=== PATIENT | female | born 1970 | race Caucasian/White ===

== ENCOUNTER 2016-09-25 12:57 | Emergency (ER) | payer MEDICAID ==
[2016-09-25 13:04] VITALS: BP 108/50
--- NOTE | 2016-09-25 13:32 | ERNOTE ---
Medical Problem HPI - General Chief Complaint: General Assessment Time Seen by Provider: 09/25/16 13:01 Source: patient Exam Limitations: no limitations - Immun/Allergies/Home Medications Immunizations: IMMUNIZATION HX Immunizations Up to Date Yes History of Influenza Vaccine Yes Hx Pneumococcal Vaccination No Allergies/Adverse Reactions: Allergies fentanyl Adverse Reaction (Intermediate, Verified 09/25/16 13:07) Other morphine Adverse Reaction (Intermediate, Verified 09/25/16 13:11) Other Patient reports chest pain NSAIDS (Non-Steroidal Anti-Inflamma Adverse Reaction (Intermediate, Verified 13:07) Vomiting Home Medications: HOME MEDICATIONS Gabapentin 600 mg PO TID 01/24/15 [Last Taken 02/12/15] Promethazine HCl [Phenergan] 25 mg PO QID PRN 01/24/15 [Last Taken 02/12/15] Pantoprazole Sodium 40 mg PO DAILY 03/28/15 [Last Taken Unknown] Sucralfate [Carafate] 1 gm PO QID 09/19/15 [Last Taken Unknown] traZODone HCL [Desyrel] 150 mg PO HS 09/19/15 [Last Taken Unknown] Misoprostol [Cytotec] 200 mcg PO QID 09/25/16 [Last Taken Unknown] Ondansetron [Zofran Odt] 4 mg PO BID 09/25/16 [Last Taken Unknown] Sucralfate [Carafate] 1 gm PO QID #120 tab 09/25/16 [Last Taken Unknown] levETIRAcetam [Keppra] 500 mg PO BID 09/25/16 [Last Taken Unknown] - History of Present History Narrative: Patient state that she had a recurrence of her abdominal pain which the past has been linked to peptic ulcer disease. She states that when the pain gets extraordinarily bad in the epigastric region that she is prone to fainting and that's what happened to her today. Patient states that this happened multiple times in the past and she is certain that this is exactly what happened today. Timing: intermittent Severity: moderate Review of Systems - Review of Systems Constitutional: Present: See HPI EYE: Present: no symptoms reported ENT: Present: no symptoms reported Respiratory: Present: no symptoms reported Cardiology: Present: no symptoms reported Gastrointestinal/Abdominal: Present: abdominal pain Genitourinary: Present: no symptoms reported Musculoskeletal: Present: no symptoms reported Skin: Present: no symptoms reported Neurological: Present: See HPI Endocrine: Present: no symptoms reported Hematologic/Lymphatic: Present: no symptoms reported Psych: Present: no symptoms reported - Patient's Past Medical History Patient History - Medical: Anxiety, Chronic Pain, Depression, GERD, Seizures, Other - PUD, Pancreatitis, Neurally mediated syncope Patient History - Cardiac/Respiratory: No pertinent hx Patient History - Cancer: No Hx of Cancer Patient History - Surgical Procedures: Appendectomy, Cholecystectomy, Gastric Bypass, Hysterectomy, Tubal Ligation Patient History - Other: None LMP (females 10-50): Menopausal - Family History Mother Family History - Medical: No pertinent hx Family History - Cardiac/Respiratory: Hypertension Father Family History - Medical: , No pertinent hx Family History - Cardiac/Respiratory: No pertinent hx - Social History Living Situations: home Abuse History: No History of abuse Psych History: Hx of Anxiety, Hx of Depression Smoking Status: Current every day smoker Alcohol Use: none Drug Use: none - Immunizations Immunizations Up to Date: Yes Hx Pneumococcal Vaccination: No History of Influenza Vaccine: Yes Physical Exam - Physical Exam General Appearance: Present: wd/wn, alert, moderate distress Eye Exam: Normal inspection: bilateral, PERRL: bilateral Ears, Nose, Throat: Present: normal ENT inspection, H, normal pharynx Neck: Present: normal inspection, nontender Respiratory: Present: no respiratory distress, normal breath sounds, no accessory muscle use, chest nontender, lungs clear Cardiovascular/Chest: Present: regular rate, rhythm, no murmur, normal peripheral pulses Gastrointestinal/Abdominal: Present: normal bowel sounds, nondistended, soft, no organomegaly, tenderness Rectal Exam: Present: deferred Back Exam: Present: normal inspection, normal range of motion Extremity Exam: Present: normal inspection, non-tender, no edema, normal range of motion Neurological Exam: Present: alert, oriented, normal mood/affect Skin Exam: Present: normal color, warm/dry Lymphatic Exam: Present: no adenopathy ED Progress - Results and Orders Patient's Lab Results:: I have reviewed the patient's lab results. - Vital Signs Patient's Vital Signs:: I have reviewed the patient's vital signs. Vital Signs: Vital Signs 09/25/16 09/25/16 12:59 13:11 Temperature 36.7 C Pulse Rate 81 77 Respiratory 16 13 Rate Blood Pressure 108/50 108/50 O2 Sat by Pulse 100 99 Oximetry - EKG EKG: NSR - X-Ray X-Ray #1 X-Ray: chest Interpretation: Reviewed by me - Progress/Reassessment Chief Complaint: General Assessment Progress:: Improved Plan - Plan Plan: She states she always has the symptoms as noted above I suspect that we may very well have a recurrence of her stomach ulcer. She is currently on Protonix and we will add Carafate to this and she has agreed to call her physician in [place] for a repeat EGD. Departure - Departure Clinical Impression: Syncope, non cardiac, Peptic ulcer disease Disposition: Home self-care Condition: Good Instructions: Syncope, [id number] Prescriptions: Sucralfate [Carafate] 1 gm PO QID #120 tab
[2016-09-25] MEDS ORDERED: FAMOTIDINE 10 MG/ML VIAL IV ONE ×2 (13:33→13:37)
[2016-09-25] MEDS ORDERED: PROCHLORPERAZINE EDISYLATE 5 MG/ML VIAL IV ONE (13:35)
[2016-09-25] MEDS ORDERED: diphenhydrAMINE HCL 50 MG/ML VIAL IV ONE (13:35)
[2016-09-25] MEDS ORDERED: diphenhydrAMINE HCL 50 MG/ML VIAL ONE (13:36)
[2016-09-25] MEDS ORDERED: NORMAL SALINE 1,000 ML in NORMAL SALINE 1,000 ML IV ONE (13:37)
[2016-09-25] MEDS ORDERED: PROCHLORPERAZINE EDISYLATE 5 MG/ML VIAL ONE (13:37)
[2016-09-25 14:00] LABS: Hemoglobin 10.1 gm/dL (12.5-16.0); Mean Cell Volume 86.8 fl (78-100); Mean Corpuscular Hemoglobin 26.6 pg (27-31); Mean Corpuscular Hgb Conc 30.6 g/dl (32-36); Mean Platelet Volume 9.5 fl (6.0-9.5); Neutrophil # 3.6 K/mm3 (1.3-6.0); Neutrophil % 55.3 % (42-75.0); Platelet Count 245 K/mm3 (150-450); Red Cell Distribution Width 16.1 % (11.5-14.0); White Blood Count 6.4 K/mm3 (4.0-10.5)
--- OUTSIDE RECORDS SUMMARY | 2016-09-25 14:00 | XMS REPORT | Continuity of Care Document ---
:1970 Author Organization [facility] ([facility]) Address [address] [place] [address] Phone [phone] Care Team Providers Name Role Phone Ki Lore Moyer Primary Care Provider [phone] Source Comments This disclosure is being made pursuant to the Care Everywhere program, applicable federal and state laws, and may not contain all informaitonavailable regarding this patient.[facility] ([facility]) Active Allergies and Adverse Reactions Allergen Noted Date Severity Reactions Comments Diphenhydramine 04/19/2012 OTHER "it makes me antsy" Fentanyl 07/30/2015 Chest pain Morphine 03/15/2015 OTHER Irritable Nsaids (Non-Steroidal 11/07/2013 OTHER Anti-Inflammatory Drug) Other Agent Blisters Metals burn and irritate Paper tape blisters skin Current Medications Prescription Sig. Disp. Refills Start Date End Date Status traZODone 100 mg Take 100 mg by Active tablet mouth at bedtime as needed for Sleep buPROPion Take 300 mg by Active (WELLBUTRIN XL) 300 mouth Every mg extended release morning tablet 24 hour promethazine 25 mg Take 25 mg by Active tablet mouth every 8 hours as needed acetaminophen 500 mg Take 500-1,000 Active tablet mg by mouth every 6 hours as needed CALCIUM Take 1 tablet by Active CARBONATE/VITAMIN D2 mouth 2 times (CALCIUM + VITAMIN D daily PO) vitamin B complex Take 1 tablet by Active tablet mouth daily cyanocobalamin Take 1,000 mcg Active (VITAMIN B-12) 1,000 by mouth daily mcg tablet albuterol 90 Use 2 Puffs by Active mcg/Actuation inhalation every inhaler 4 hours as needed ondansetron 4 mg Take 1 tablet (4 10 tablet 0 07/04/2015 Active disintegrating mg total) by tablet mouth every 6 hours as needed gabapentin 300 mg Take 600 mg by Active capsule mouth 3 times daily. misoPROStol 200 mcg Take 1 tablet 120 tablet 3 08/01/2015 Active tablet (200 mcg total) by mouth 4 times daily. pantoprazole 40 mg Take 1 tablet 30 tablet 3 08/01/2015 Active EC tablet (40 mg total) by mouth daily. sucralfate 1000 mg Take 1 tablet 90 tablet 11 08/01/2015 Active tablet (1,000 mg total) by mouth before meals and at bedtime. ondansetron [address] 1 tablet 12 tablet 0 08/23/2015 Active disintegrating (4 mg total) in tablet mouth every 6 hours as needed. promethazine 25 mg Insert 1 12 Suppository 0 08/26/2015 Active suppository Suppository (25 mg total) rectally every 8 hours as needed. ondansetron 4 mg Take 1 tablet (4 12 tablet 0 08/26/2015 Active disintegrating mg total) by tablet mouth every 6 hours as needed. HYDROmorphone 2 mg Take 1 tablet (2 10 tablet 0 12/06/2015 Active tablet mg total) by mouth every 4 hours as needed for pain. Active Problems Problem Noted Date Pancreatitis, chronic 04/17/2015 Abdominal pain, epigastric 04/08/2015 Epigastric pain 04/08/2015 Ulcer jejunum 03/16/2015 B12 deficiency 12/25/2014 Small intestinal bacterial overgrowth 12/24/2014 Overview: Possible diagnosis. Undergoing empiric treatment. 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 Drug withdrawal syndrome with complication 12/22/2014 Anastomotic ulcer 12/20/2014 Tobacco dependence 12/20/2014 Diarrhea 10/05/2014 Iron deficiency anemia 11/08/2013 Abdominal pain 01/21/2012 Hypovitaminosis D 03/08/2011 Status post bariatric surgery 05/17/2009 Resolved Problems Problem Noted Date Resolved Date Sepsis(995.91) 05/04/2015 05/05/2015 Nausea 04/17/2015 04/19/2015 Upper GI bleed 03/15/2015 03/18/2015 Coffee ground emesis 12/20/2014 12/26/2014 Nausea alone 10/05/2014 12/20/2014 Abdominal pain, epigastric 10/20/2012 04/19/2015 Screening for cholesterol level 08/29/2012 12/20/2014 Headache(784.0) 08/29/2012 12/20/2014 Screening for breast cancer 08/29/2012 12/20/2014 Morbid obesity 02/12/2008 11/28/2014 Immunizations Name Dates Previously Given Next Due Influenza, unspecified 03/31/2014 Pneumococcal Polysaccharide, PPSV23 (Pneumovax 23) 01/23/2012 Social History Tobacco Use Types Packs/Day Years Used Date Current Every Day Smoker Cigarettes 1 Started: 11/11/1978 Smokeless Tobacco: Never Used Tobacco Cessation:Ready to Quit: No; Counseling Given: Yes Comments: Alcohol Use Drinks/Week oz/Week Comments No Last Filed Vital Signs Vital Sign Reading Time Taken Blood Pressure 111/68 04/06/2016 8:32 AM CDT Pulse 104 04/06/2016 8:32 AM CDT Temperature 37 C (98.6 F) 04/06/2016 8:32 AM CDT Respiratory Rate 14 04/06/2016 8:32 AM CDT Height 1.689 m (5' 6.5") 10/07/2015 10:43 AM CDT Weight 72.576 kg (160 lb) 10/07/2015 10:43 AM CDT Body Mass Index 25.44 10/07/2015 10:43 AM CDT Oxygen Saturation 99% 04/06/2016 8:32 AM CDT Plan of Care Health Maintenance Due Date Last Done Comments Hepatitis B Vaccine (1 of 3 - Primary 1970 Series) Tdap Vaccine 12/20/1979 MMR Vaccine 1986 Cervical Cancer Screening 1998 Mammogram 2008 Influenza Vaccine: Seasonal (#1) 01/30/2016 03/31/2014 Lipid Disorder Screening 08/29/2017 08/29/2012, 03/01/2011, 01/22/2008 Td Vaccine 08/29/2020 08/29/2010 Pneumococcal Vaccine Completed 01/23/2012 Results from Last 3 Months Not on file
[2016-09-25 14:25] LABS: Albumin * 3.1 gm/dl (3.4-5.0); Anion Gap 10.6 mmol/L (6.8-13.8); BUN/Creatinine Ratio 13.3 (9.0-21.6); Bilirubin, Total 0.2 mg/dL (0.0-1.1); Ca. Corrected For Albumin 8.7 mg/dL (8.4-10.2); Calcium * 8.3 mg/dL (7.9-10.9); Carbon Dioxide 29.1 mmol/L (24-32.6); Potassium 4.7 mmol/L (3.4-4.6); Total Protein 6.5 gm/dL (6.2-8.2)
--- NOTE | 2016-09-25 15:40 | OR ---
Anesthesia Procedure Note - Anesthesia Procedure Note Date of Service: 09/25/16 Narrative: Vital Signs - Last Taken Temp 36.7 C 09/25/16 12:59 Pulse 77 09/25/16 13:11 Resp 13 09/25/16 13:11 BP 108/50 09/25/16 13:11 Pulse Ox 99 09/25/16 13:11 O2 Oxygen Delivery Method Room Air 09/25/16 15:39 ANESTHESIA PROCEDURE NOTE Date of Procedure: 09/25/2016. Time of procedure: 1514. Performed by: Huy Grubbs CRNA [employer] Equipment Operator: None. Preprocedure diagnosis: Syncopal episode, difficult IV access. Post procedure diagnosis: Same. Procedure: Peripheral vein IV insertion. Indications: This 45-year-old female who is in the emergency room. Numerous attempts at IV insertion were attempted by emergency room staff without success. Findings: See below. Details of the procedure: Skin over the intended target site was cleansed with alcohol. A 22-gauge IV catheter was inserted into a left hand vein. A sterile dressing was applied over the insertion site. The line was then flushed with sterile saline solution. EBL: Minimal. Fluids: N/A. Specimen: N/A. Post procedure condition: The patient tolerated the procedure well. No complications were noted. Thank you for this consultation. Huy Grubbs CRNA
== END 2016-09-25 16:40 | disposition home or self-care (01) ==
LOC: ER 12:57
DX: R55 Syncope and collapse (principal); K27.9 Peptic ulcer, site unspecified, unspecified as acute or chronic, without hemorrhage or perforation; Z72.0 Tobacco use; K21.9 Gastro-esophageal reflux disease without esophagitis; R56.9 Unspecified convulsions; F41.8 Other specified anxiety disorders; G89.29 Other chronic pain

== ENCOUNTER 2017-05-16 10:35 | Emergency (ER) | payer MEDICAID ==
[2017-05-16] MEDS ORDERED: ONDANSETRON HCL/PF 2 MG/ML VIAL IV ONE (10:55)
[2017-05-16] MEDS ORDERED: DICYCLOMINE HCL 10 MG/ML AMPUL IM ONE ×2 (10:56→11:21)
[2017-05-16 11:08] LABS: Hematocrit 43.4 % (37.0-47.0); Hemoglobin 14.9 gm/dL (12.5-16.0); Mean Cell Volume 96.4 fl (78-100); Mean Corpuscular Hemoglobin 33.1 pg (27-31); Mean Corpuscular Hgb Conc 34.3 g/dl (32-36); Mean Platelet Volume 9.6 fl (6.0-9.5); Neutrophil # 5.8 K/mm3 (1.3-6.0); Neutrophil % 74.3 % (42-75.0); Platelet Count 230 K/mm3 (150-450); Red Cell Distribution Width 12.3 % (11.5-14.0); White Blood Count 7.8 K/mm3 (4.0-10.5)
--- NOTE | 2017-05-16 11:11 | ERNOTE ---
Abdominal HPI - Narrative Date of Service: 05/16/17 - General Chief Complaint: Abdominal Pain Time Seen by Provider: 05/16/17 10:51 Source: patient Exam Limitations: no limitations - Immun/Allergies/Home Medications Immunizatons: IMMUNIZATION HX Immunizations Up to Date Yes History of Influenza Vaccine No Hx Pneumococcal Vaccination No Allergies/Adverse Reactions: Allergies fentanyl Adverse Reaction (Intermediate, Verified 05/16/17 10:57) Other morphine Adverse Reaction (Intermediate, Verified 05/16/17 10:57) Other Patient reports chest pain NSAIDS (Non-Steroidal Anti-Inflamma Adverse Reaction (Intermediate, Verified 10:57) Vomiting Home Medications: HOME MEDICATIONS Gabapentin 600 mg PO TID 01/24/15 [Last Taken 02/12/15] Promethazine HCl [Phenergan] 25 mg PO QID PRN 01/24/15 [Last Taken 02/12/15] Pantoprazole Sodium 40 mg PO DAILY 03/28/15 [Last Taken Unknown] traZODone HCL [Desyrel] 150 mg PO HS 09/19/15 [Last Taken Unknown] Misoprostol [Cytotec] 200 mcg PO QID 09/25/16 [Last Taken Unknown] Ondansetron [Zofran Odt] 4 mg PO BID 09/25/16 [Last Taken Unknown] Sucralfate [Carafate] 1 gm PO QID #120 tab 09/25/16 [Last Taken Unknown] levETIRAcetam [Keppra] 750 mg PO BID 09/25/16 [Last Taken Unknown] Ondansetron [Zofran Odt] 4 mg PO Q6H PRN #20 tab 05/16/17 [Last Taken Unknown] - History of Present Illness Narrative: Pt. comes in with c/o BUQ pain and B flank pain for 6 hours. Pt.also states that the symptoms are associated with nausea, diarrhea, and chills. Pt. denies any fever, CP, SOB, constipation, recent illness or injury. Pt. has a hx of chronic pancreatitis which she is on medications for and took this morning along with Tylenol which she denies any alleviation for. Pt. Pt. states that movement exacerbates the pain. Review of Systems - Review of Systems Constitutional: Present: no symptoms reported. Absent: recent illness, fever, chills, weakness, fatigue, malaise EYE: Present: no symptoms reported ENT: Present: no symptoms reported Respiratory: Present: no symptoms reported. Absent: shortness of breath, cough , wheezing Cardiology: Present: no symptoms reported. Absent: chest pain, palpitations, edema Gastrointestinal/Abdominal: Present: nausea, vomiting, diarrhea, abdominal pain , eating less, drinking less. Absent: constipation Genitourinary: Present: no symptoms reported Musculoskeletal: Present: no symptoms reported. Absent: back pain, joint pain Skin: Present: no symptoms reported. Absent: rash, lesions, lumps, change in hair/nails Neurological: Present: no symptoms reported. Absent: headache, dizziness/light- headedness, numbness, tingling All Other Systems: All systems neg except as marked - Patient's Past Medical History Patient History - Medical: Anxiety, Chronic Pain, Depression, GERD, Seizures Patient History - Cardiac/Respiratory: No pertinent hx Patient History - Cancer: No Hx of Cancer Patient History - Surgical Procedures: Appendectomy, Cholecystectomy, Gastric Bypass, Hysterectomy, Tubal Ligation Patient History - Other: None - Family History Mother Family History - Medical: No pertinent hx Family History - Cardiac/Respiratory: Hypertension Father Family History - Medical: , No pertinent hx Family History - Cardiac/Respiratory: No pertinent hx - Social History Living Situations: home Abuse History: No History of abuse Psych History: Hx of Anxiety, Hx of Depression Smoking Status: Current every day smoker Alcohol Use: none Drug Use: none - Immunizations Immunizations Up to Date: Yes Hx Pneumococcal Vaccination: No History of Influenza Vaccine: No Physical Exam - Physical Exam General Appearance: Present: wd/wn, alert, no apparent distress Head Exam: Present: normal inspection, no evidence of injury Eye Exam: Normal inspection: bilateral, PERRL: bilateral, EOMI: bilateral Ears, Nose, Throat: Present: normal ENT inspection, normal pharynx Neck: Present: normal inspection, nontender. Absent: lymphadenopathy (R), lymphadenopathy (L) Respiratory: Present: no respiratory distress, normal breath sounds, no accessory muscle use, chest nontender, lungs clear Cardiovascular/Chest: Present: regular rate, rhythm, no murmur, normal peripheral pulses Gastrointestinal/Abdominal: Present: normal bowel sounds, nontender, nondistended, soft, no organomegaly Back Exam: Present: normal range of motion, no vertebral tenderness, CVA tenderness (R), CVA tenderness (L) Extremity Exam: Present: normal inspection, non-tender, normal range of motion, no edema Neurological Exam: Present: alert, oriented, normal mood/affect, no motor/ sensory deficits, community coordinator II-XII nml as tested, normal cerebellar test Skin Exam: Present: normal color, warm/dry. Absent: pallor, skin rash ED Progress - Results and Orders Patient's Lab Results:: I have reviewed the patient's lab results. - Vital Signs Patient's Vital Signs:: I have reviewed the patient's vital signs. Vital Signs: Vital Signs 05/16/17 10:52 Temperature 37.0 C Pulse Rate 81 Respiratory 16 Rate Blood Pressure 106/66 O2 Sat by Pulse 100 Oximetry - CT/Ultrasound CT/Ultrasound Narrative: UNENHANCED CT SCAN OF THE ABDOMEN AND PELVIS USING A KIDNEY STONE PROTOCOL. COMPARISON: NONE Technique: Multiple axial images were obtained from above the kidneys down through the pelvis without the use of IV or oral contrast. Coronal reconstructions were obtained. The lack of oral and IV contrast limits the evaluation of the solid organs, bowel, and vascular system. Individualized dose optimization technique was used for the performed procedure including automated exposure control, adjustment of the mA and/or kV according to patient size and/or the iterative reconstruction technique. Findings: The visualized costophrenic angles / lung bases are clear. The liver and spleen are homogeneous in appearance for an unenhanced study. The right lobe the liver is prominent measuring 20 cm in craniocaudal dimension, which is essentially unchanged from the prior study. 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 The patient is status post cholecystectomy. The common bile duct measures 16 mm in diameter, which has progressed when compared to the prior study. This may reflect postcholecystectomy dilatation, but other etiologies cannot be totally excluded. The adrenal glands are within normal limits. The pancreas is suboptimally evaluated without IV or oral contrast, but is grossly normal in appearance. A small pancreatic lesion cannot excluded. The abdominal aorta is of normal caliber. I do not see evidence for retroperitoneal adenopathy on this study. There is been a previous gastric bypass.. The small bowel is of normal caliber. The appendix is not identified. The colon is suboptimally evaluated, but I'm not convinced of a definable colon lesion. The right and left renal parenchyma is normal in appearance for an unenhanced study. A small mass, small cysts, and pyelonephritis cannot be totally excluded on this unenhanced study. Right kidney: There is a 1.5 mm nonobstructing calculus in the midpole the right kidney. The right pelvicalyceal system and right ureter is of normal caliber. The ureter is difficult to follow due to the lack of dilatation, but I'm not convinced of definable calculus. Left kidney: There is a 1 mm nonobstructing calculus in the upper pole the left kidney. The left pelvicalyceal system and left ureter are of normal caliber. The ureter is difficult to follow due to the lack of dilatation I'm not convinced of a definable calculus along the path of the ureter. CT scan of pelvis: The urinary bladder is normal in appearance on this limited study. The patient' s status post hysterectomy. The the right and left ovaries are not clearly defined. I do not see evidence for free fluid, mass, or adenopathy in the pelvis. IMPRESSION: 1. LIMITED UNENHANCED STUDY. 2. SINGLE SMALL NONOBSTRUCTING RENAL CALCULI IN BOTH KIDNEYS WITHOUT EVIDENCE FOR HYDRONEPHROSIS OR DEFINABLE CALCULUS ALONG THE PATH OF URETERS. 3. 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 4. STATUS POST CHOLECYSTECTOMY. 5. DILATED COMMON BILE DUCT; THIS MAY BE RELATED TO POSTCHOLECYSTECTOMY DILATATION, BUT OTHER ETIOLOGIES CANNOT BE TOTALLY EXCLUDED AND CORRELATION REQUIRED. 6. STATUS POST HYSTERECTOMY. Electronically signed by Varun Ospina M.D.. - Progress/Reassessment Chief Complaint: Abdominal Pain Progress:: Improved Departure Clinical Impression: Acute gastroenteritis - Departure Disposition: Home self-care Condition: Good Instructions: Viral Gastroenteritis, Adult, [id number] Additional Instructions: May take warm showers or baths for discomfort and Tylenl. Please try to drink fluids as possible and take zofran for nausea. Follow up with primary provider in 2-3 days. Prescriptions: Ondansetron [Zofran Odt] 4 mg PO Q6H PRN #20 tab PRN Reason: Nausea
[2017-05-16 11:16] LABS: Urine Bilirubin Negative (NEGATIVE); Urine Blood 25 /ul (NEGATIVE); Urine Ketone Negative (NEGATIVE); Urine Nitrite Negative (NEGATIVE); Urine Protein Negative (NEGATIVE); Urine Urobilinogen Normal (NORMAL); Urine pH 6.5 pH (5.0-7.0)
[2017-05-16] MEDS ORDERED: ONDANSETRON HCL/PF 2 MG/ML VIAL ONE (11:21)
[2017-05-16 11:22] LABS: Albumin * 3.5 gm/dl (3.4-5.0); Anion Gap 12.1 mmol/L (6.8-13.8); BUN/Creatinine Ratio 9.6 (9.0-21.6); Bilirubin, Total 0.4 mg/dL (0.0-1.1); Ca. Corrected For Albumin 8.8 mg/dL (8.4-10.2); Calcium * 8.7 mg/dL (7.9-10.9); Carbon Dioxide 25.5 mmol/L (24-32.6); Potassium 4.6 mmol/L (3.4-4.6)
[2017-05-16 11:25] LABS: Urine Appearance Clear; Urine Bacteria None Seen; Urine Color Yellow; Urine RBC 0-5 /hpf (0-5); Urine WBC None Seen /hpf (0-5)
[2017-05-16] MEDS ORDERED: HYDROmorphone HCL 1 MG/ML DISP.SYRIN IV ONE (12:16)
[2017-05-16] MEDS ORDERED: HYDROmorphone HCL 1 MG/ML DISP.SYRIN ONE (12:23)
[2017-05-16 14:33] VITALS: BP 90/39
== END 2017-05-16 14:34 | disposition home or self-care (01) ==
LOC: ER 10:35
DX: K52.9 Noninfective gastroenteritis and colitis, unspecified (principal); F17.200 Nicotine dependence, unspecified, uncomplicated; F41.9 Anxiety disorder, unspecified; K21.9 Gastro-esophageal reflux disease without esophagitis; R56.9 Unspecified convulsions; F32.9 Major depressive disorder, single episode, unspecified
CPT/HCPCS: 36415; 74020; 74176; 80053; 81001; 82150; 83690; 85025; 96372; 96374; 96375; 99284; J2405

== ENCOUNTER 2018-08-26 10:21 | Observation (INO) ==
[2018-08-26] MEDS ORDERED: ONDANSETRON HCL/PF 2 MG/ML VIAL IV ONE (10:33)
[2018-08-26] MEDS ORDERED: HYDROmorphone HCL 1 MG/ML DISP.SYRIN IV ONE ×3 (10:40→14:11)
--- NOTE | 2018-08-26 10:40 | ERNOTE ---
Abdominal HPI - Narrative Date of Service: 08/26/18 - General Chief Complaint: Abdominal Pain Time Seen by Provider: 08/26/18 10:25 Source: patient Exam Limitations: no limitations - Immun/Allergies/Home Medications Immunizatons: IMMUNIZATION HX Immunizations Up to Date Yes History of Influenza Vaccine Yes Hx Pneumococcal Vaccination Yes Allergies/Adverse Reactions: Allergies fentanyl Adverse Reaction (Intermediate, Verified 08/26/18 10:31) Chest Pain chest tightness morphine Adverse Reaction (Intermediate, Verified 08/26/18 10:31) Chest Pain Patient reports chest pain NSAIDS (Non-Steroidal Anti-Inflamma Adverse Reaction (Intermediate, Verified 08/26/18 10:31) Vomiting Home Medications: HOME MEDICATIONS Dexlansoprazole [Dexilant] 60 mg PO DAILY 03/08/18 [Last Taken Unknown] Ondansetron [Zofran Odt] 4 mg PO QID PRN 03/08/18 [Last Taken Unknown] Venlafaxine HCl [Effexor] 75 mg PO DAILY 03/08/18 [Last Taken Unknown] Lipase/Protease/Amylase [Niraj Lozano 4,200 Unit Cap] 1 ea PO AC 08/25/18 [Last Taken Unknown] HYDROcodone/ACETAMINOPHEN [[place] 5-325] 1 tab PO Q4H PRN 08/26/18 [Last Taken Unknown] - Pain Score Pain Score #1 Pain Score: 10 Abdominal Pain Onset Location: RLQ Pain Radiation: no radiation - History of Present Illness Narrative: The patient is a 47 year old female who presents for RLQ abdominal pain which has been present for 4 days. There are associated symptoms of nausea, vomiting and diarrhea. The patient reports RLQ and right mid abdominal pain, 10/10. There are no alleviating factors. There are aggravating factors of activity and palpation. Previous treatments have included: hydrocodone without improvement. The past medical history includes: pancreatitis, PUD and chronic pain. The social history is positive for current tobacco use. The patient has had no ill contacts. Patient was evaluated yesterday with CT results, consulted. Patient has colonoscopy scheduled 08/27/18 and yesterday felt able to go home and manage symptoms. Review of Systems - Review of Systems Constitutional: Present: fatigue. Absent: fever EYE: Present: no symptoms reported ENT: Present: no symptoms reported. Absent: ear pain, nasal drainage, sore throat Respiratory: Present: no symptoms reported. Absent: shortness of breath, cough Cardiology: Present: no symptoms reported. Absent: chest pain Gastrointestinal/Abdominal: Present: nausea, vomiting, diarrhea, abdominal pain, eating less, drinking less Genitourinary: Present: no symptoms reported. Absent: dysuria, decreased urinary output Musculoskeletal: Present: no symptoms reported Skin: Present: no symptoms reported Neurological: Present: no symptoms reported Endocrine: Present: no symptoms reported Hematologic/Lymphatic: Present: no symptoms reported Psych: Present: no symptoms reported All Other Systems: All systems neg except as marked Medical History (Last Reviewed 08/26/18 @ 11:12 by KIM Martines) Chronic pain Pancreatitis Peptic ulcer disease Surgical History: Surgical History (Last Reviewed 08/26/18 @ 11:12 by KIM Martines) Hx of appendectomy Hx of cholecystectomy Hx of gastric bypass Hx of hysterectomy Social History: Preferred Language Uzbek Smoking Status Current every day smoker Abuse History No History of abuse Psych History Hx of Anxiety,Hx of Depression Alcohol Use none Drug Use none No Social History Section defined Physical Exam - Physical Exam General Appearance: Present: wd/wn, alert, moderate distress Head Exam: Present: normal inspection Eye Exam: Normal inspection: bilateral Neck: Present: normal inspection Respiratory: Present: no respiratory distress, normal breath sounds, no accessory muscle use, lungs clear Cardiovascular/Chest: Present: regular rate, rhythm, no murmur Gastrointestinal/Abdominal: Present: normal bowel sounds, nondistended, soft, no organomegaly, tenderness - RLQ right mid abdomen, guarding, rebound, Psoas sign. Absent: mass Neurological Exam: Present: alert, oriented, normal mood/affect Skin Exam: Present: normal color, warm/dry Progress - Date and Time Seen: Date and Time: 08/26/18 11:10 Discussed case with , will repeat lab testing. 08/26/18 12:02 Discussed repeat results with , will admit to medicine and consult during stay. Discussed case with , will admit observation for intractable abdominal pain with nausea and vomiting. Will still plan for scope tomorrow as previously scheduled. - Results and Orders Patient's Lab Results:: I have reviewed the patient's lab results. - Vital Signs Patient's Vital Signs:: I have reviewed the patient's vital signs. Vital Signs: Vital Signs 08/26/18 10:27 Temperature 37 C Pulse Rate 76 Respiratory Rate 14 Blood Pressure 119/58 O2 Sat by Pulse Oximetry 99 - Progress/Reassessment Chief Complaint: Abdominal Pain Progress:: Improved Departure Clinical Impression: Intractable abdominal pain, Nausea and vomiting in adult patient, Abnormal CT of the abdomen - Departure Disposition: Still a patient Condition: Fair
[2018-08-26 10:58] LABS: Hematocrit 41.9 % (37.0-47.0); Hemoglobin 14.2 gm/dL (12.5-16.0); Mean Cell Volume 94.6 fl (78-100); Mean Corpuscular Hemoglobin 32.1 pg (27-31); Mean Corpuscular Hgb Conc 33.9 g/dl (32-36); Mean Platelet Volume 9.2 fl (8-12.5); Neutrophil % 73.1 % (42-75.0); Platelet Count 219 K/mm3 (150-450); Red Blood Count 4.43 M/mm3 (4.2-5.4); Red Cell Distribution Width 12.5 % (11.5-14.0); White Blood Count 6.8 K/mm3 (4.0-10.5)
[2018-08-26 11:13] LABS: Albumin * 3.6 gm/dl (3.4-5.0); Anion Gap 15.1 mmol/L (6.8-13.8); BUN/Creatinine Ratio 12.1 (9.0-21.6); Bilirubin, Total 0.5 mg/dL (0.0-1.1); Ca. Corrected For Albumin 9.3 mg/dL (8.4-10.2); Calcium * 9.3 mg/dL (7.9-10.9); Carbon Dioxide 25.8 mmol/L (24-32.6); Potassium 3.9 mmol/L (3.4-4.6)
[2018-08-26] MEDS ORDERED: NORMAL SALINE 1,000 ML IV ONE (12:21)
--- NOTE | 2018-08-26 13:34 | PN ---
Dictated Progress Note - Date and Time Seen: Date: 08/26/18 Time: 13:33 - Progress Note Narrative: See consult yesterday feeling the same, but having worsening abdominal pain in RUQ. Vital Signs - Last Taken Temp 37.1 C 08/26/18 12:08 Pulse 73 08/26/18 12:17 Resp 16 08/26/18 12:08 BP 88/57 L 08/26/18 12:17 Pulse Ox 100 08/26/18 12:17 Abnormal/Pending Laboratory Last 24 HRS 08/26/18 08/26/18 10:51 10:51 MCH 32.1 H Lymphocytes % 19.9 L Lymphocytes # 1.35 L Anion Gap 15.1 H Amylase 120 H NAD non labored respirations abd soft, non distended, mod TTP in RUQ, no rebound or guarding Imp: abd pain, slightly thickened bowel wall on CT hx of appy and sarah hx RNYGB Plan: U/L scopes tomorrow
[2018-08-26] MEDS ORDERED: SOD CHLORIDE/NAHCO3/KCL/PEG'S 4,000 ML BTL PO ONE (13:36)
[2018-08-26] MEDS ORDERED: ACETAMINOPHEN 500 MG TABLET PO PRN (14:41)
[2018-08-26] MEDS ORDERED: ONDANSETRON HCL 4 MG TABLET PO PRN (14:43)
--- NOTE | 2018-08-26 15:05 | HP ---
Chief Complaint - Chief Complaint Date of Service: 08/26/18 Time of Service: 14:52 Chief Complaint: I have abdominal pain nausea and vomiting since yesterday History of Present Illness: 47-year-old female with past medical history of pancreatitis, peptic ulcer disease, depression, surgical history of appendectomy, cholecystectomy, and gastric bypass came to the ER at [facility] due to worsening right upper and right lower quadrant pain of 3 days duration accompanied by nausea vomiting and nonbloody diarrhea. She reports having an appendectomy over 30 years ago and not having any issues since that surgery concerning the appendix, but this past Saturday she started having right upper quadrant discomfort and later pain that radiated to her left lower quadrant. Patient came to ER yesterday and was evaluated with a new was determined that she had bowel wall thickening but no obstruction and possible infection of a possible remnant of the appendix she was evaluated by surgery who recommended an upper and lower. Patient was then discharged home with instructions to return in 2 days for the endoscopies but her nausea vomiting abdominal pain worsened and she was unable to control them at home. Therefore she return to the ER this morning with generalized weakness and an additional episode of vomiting, patient was also in excruciating pain. Therefore given his findings was taken. Medical History (Last Reviewed 08/26/18 @ 13:23 by Desiree Zuñiga RN) Chronic pain Pancreatitis Peptic ulcer disease Surgical History: Surgical History (Last Reviewed 08/26/18 @ 13:23 by Desiree Zuñiga RN) Hx of appendectomy Hx of cholecystectomy Hx of gastric bypass Hx of hysterectomy Family History: Family History (Last Updated 08/26/18 @ 13:24 by Desiree Zuñiga RN) Brother Kidney transplant recipient CVA (cerebral vascular accident) Myocardial infarction Mother Myocardial infarction Pancreatic cancer Social History: Patient Lives/Resources Home Utilized Preferred Language Swazi Do you have any jehovah's witness or No cultural preference? Smoking Status Current every day smoker Have you smoked in the past 12 Yes months Do you dip or chew tobacco No Abuse History No History of abuse Psych History Hx of Anxiety,Hx of Depression Alcohol Use none Drug Use none No Social History Section defined Peds Patient Hx - Developmental: No Pertinent Hx Peds Patient Hx - Medical: No Pertinent Hx Peds Patient Hx - Cardiac/Respiratory: No Pertinent Hx Peds Patient Hx - Surgical: No Surgical History Patient History - Cancer: No Hx of Cancer Review Of Systems (GEN) - Review of Systems Generalized/Overall Review: Present: No Symptoms Reported EENTM: Present: No Symptoms Reported Respiratory: Present: No Symptoms Reported Cardiac: Present: No Symptoms Reported Abdominal: Present: Nausea, Vomiting, Abdominal Pain, Diarrhea Genitourinary: Present: No Symptoms Reported Musculoskeletal: Present: No Symptoms Reported Neurological: Present: No Symptoms Reported Skin: Present: No Symptoms Reported Endocrine: Present: No Symptoms Reported Immunizations: IMMUNIZATION HX Immunizations Up to Date Yes History of Influenza Vaccine Yes Hx Pneumococcal Vaccination Yes Allergies/Adverse Reactions: Allergies Allergy/AdvReac Type Severity Reaction Status Date / Time fentanyl AdvReac Intermediate Chest Pain Verified 08/26/18 13:24 morphine AdvReac Intermediate Chest Pain Verified 08/26/18 13:24 NSAIDS (Non-Steroidal AdvReac Intermediate Vomiting Verified 08/26/18 13:24 Anti-Inflamma Home Medications: HOME MEDICATIONS Dexlansoprazole [Dexilant] 60 mg PO DAILY 03/08/18 [Last Taken Unknown] Ondansetron [Zofran Odt] 4 mg PO QID PRN 03/08/18 [Last Taken Unknown] Venlafaxine HCl [Effexor] 75 mg PO DAILY 03/08/18 [Last Taken Unknown] Lipase/Protease/Amylase [Niraj Lozano 4,200 Unit Cap] 1 ea PO AC 08/25/18 [Last Taken Unknown] Amitriptyline HCl [Elavil] 25 mg PO HS 08/26/18 [Last Taken Unknown] HYDROcodone/ACETAMINOPHEN [[place] 5-325] 1 tab PO Q4H PRN 08/26/18 [Last Taken Unknown] Exam - Exam Vital Signs: Vital Signs - Last Taken Temp 37.5 C 08/26/18 14:31 Pulse 62 08/26/18 14:31 Resp 16 08/26/18 14:31 BP 100/58 08/26/18 14:31 Pulse Ox 96 08/26/18 14:31 Constitutional: Present: Alert, Oriented x3, Cooperative, Well developed, Well nourished, No distress, Middle aged ENT Exam: Present: normal ENT inspection, hearing grossly normal, pharynx normal, TMs normal Eye Exam: bilateral eye: normal inspection, PERRL, EOMI Neck: Present: non-tender, full range of motion, supple, normal inspection, trachea midline, limited range of motion Back Exam: Present: normal inspection, no CVA tenderness, no vertebral tenderness Breasts: Present: Exam deferred Respiratory: Present: chest non-tender, lungs clear, normal breath sounds, no respiratory distress, no accessory muscle use Cardiovascular/Chest: Present: normal peripheral pulses, regular rate, rhythm, no chest tenderness, no edema, no gallop, no JVD, no murmur, no rub Peripheral Pulses: carotid (R): 3+, carotid (L): 3+, femoral (R): 3+ Abdomen: Present: soft, nondistended, tender, guarding, rebound tenderness /Rectal: Present: Exam deferred Extremity: Present: normal range of motion, non-tender, normal inspection, no pedal edema, no calf tenderness, normal capillary refill, pelvis stable Skin Exam: Present: normal color, warm/dry, no cyanosis Lymphatic: Present: no adenopathy Neurologic: Present: hand clipper II-XII nml as tested, normal cerebellar test, no motor/sensory deficits, alert, normal mood/affect, oriented x 3 Appearance: Present: appropriate appearance, appropriate insight, neat, no memory impairment Eye contact: Present: cooperative, good eye contact, normal speech Thoughts: Present: normal thought pattern, no apparent hallucination Diagnostic Studies: Abnormal Lab Results 08/26/18 08/26/18 Range/Units 10:51 10:51 MCH 32.1 H (27-31) pg Lymphocytes % 19.9 L (20-51) % Lymphocytes # 1.35 L (1.5-3.5) k/mm3 Anion Gap 15.1 H (6.8-13.8) mmol/L Amylase 120 H (25-115) U/L Laboratory Results WBC 6.8 K/mm3 (4.0-10.5) 08/26/18 10:51 RBC 4.43 M/mm3 (4.2-5.4) 08/26/18 10:51 Hgb 14.2 gm/dL (12.5-16.0) 08/26/18 10:51 Hct 41.9 % (37.0-47.0) 08/26/18 10:51 MCV 94.6 fl (78-100) 08/26/18 10:51 MCH 32.1 pg (27-31) H 08/26/18 10:51 MCHC 33.9 g/dl (32-36) 08/26/18 10:51 RDW 12.5 % (11.5-14.0) 08/26/18 10:51 Plt Count 219 K/mm3 (150-450) 08/26/18 10:51 MPV 9.2 fl (8-12.5) 08/26/18 10:51 Immature Gran % (Auto) 0.30 % (0.001-0.429) 08/26/18 10:51 Immature Gran # (Auto) 0.02 K/mm3 (0.000-0.0310) 08/26/18 10:51 Neutrophils % 73.1 % (42-75.0) 08/26/18 10:51 Lymphocytes % 19.9 % (20-51) L 08/26/18 10:51 Monocytes % 5.5 % (0.0-9) 08/26/18 10:51 Eosinophils % 0.6 % (0.0-3.0) 08/26/18 10:51 Basophils % 0.6 % (0.0-1.0) 08/26/18 10:51 Nucleated RBC % 0.0 k/mm3 (0-1) 08/26/18 10:51 Neutrophils # 5.0 K/mm3 (1.3-6.0) 08/26/18 10:51 Lymphocytes # 1.35 k/mm3 (1.5-3.5) L 08/26/18 10:51 Monocytes # 0.4 k/mm3 (0.0-1.0) 08/26/18 10:51 Eosinophils # 0.0 k/mm3 (0.0-0.7) 08/26/18 10:51 Absolute Basophils 0.0 k/mm3 (0.0-0.1) 08/26/18 10:51 Sodium 142 mmol/L (132-142) 08/26/18 10:51 Plasma Sodium 142 mmol/L (130-142) 08/26/18 10:51 Potassium 3.9 mmol/L (3.4-4.6) 08/26/18 10:51 Chloride 105 mmol/L (97-106) 08/26/18 10:51 Carbon Dioxide 25.8 mmol/L (24-32.6) 08/26/18 10:51 Anion Gap 15.1 mmol/L (6.8-13.8) H 08/26/18 10:51 BUN 11 mg/dL (3-23) 08/26/18 10:51 Creatinine 0.91 mg/dL (0.4-1.4) 08/26/18 10:51 Est GFR (Non-Af Amer) 70 mL/min (60-130) 08/26/18 10:51 BUN/Creatinine Ratio 12.1 (9.0-21.6) 08/26/18 10:51 Random Glucose 94 mg/dL (70-110) 08/26/18 10:51 Calcium 9.3 mg/dL (7.9-10.9) 08/26/18 10:51 Calcium Adj for Albumin 9.3 mg/dL (8.4-10.2) 08/26/18 10:51 Total Bilirubin 0.5 mg/dL (0.0-1.1) 08/26/18 10:51 AST 20 U/L (0-48) 08/26/18 10:51 ALT 20 U/L (19-67) 08/26/18 10:51 Alkaline Phosphatase 82 U/L (50-170) 08/26/18 10:51 Total Protein 7.0 gm/dL (6.2-8.2) 08/26/18 10:51 Albumin 3.6 gm/dl (3.4-5.0) 08/26/18 10:51 Amylase 120 U/L (25-115) H 08/26/18 10:51 Lipase 216 U/L (73-393) 08/26/18 10:51 Assessment/Plan - Narrative Narrative: Patient was evaluated in medical chart reviewed, given the patient's signs and symptoms decision to admit for abdominal pain accompanied by nausea and vomiting was taken. Surgery consult was requested and surgeon recommends and plans upper and lower endoscopies in the morning. Patient will be prepped for fluoroscopy cleaning for optimal evaluation of the intestinal flaherty. In the meantime she is being treated with IV hydration, analgesics for optimal pain control, antiemetics and all her routine meds. We will monitor her closely and follow-up with endoscopy results. - Assessment/Plan (1) Abdominal pain in female patient Problem: Acute (2) Moderate dehydration Problem: Acute (3) Nausea & vomiting Problem: Acute
[2018-08-26] MEDS: LIPASE PO SCH (16:50)
[2018-08-26] MEDS: PROTEASE PO SCH (16:50)
[2018-08-26] MEDS: AMYLASE PO SCH (16:50)
[2018-08-26] MEDS: HYDROmorphone HCL 1 MG/ML DISP.SYRIN IV PRN ×2 (18:30→22:34)
[2018-08-26 19:03] LABS: Urine Bilirubin Negative (NEGATIVE); Urine Blood 25 /ul (NEGATIVE); Urine Ketone Negative (NEGATIVE); Urine Nitrite Negative (NEGATIVE); Urine Protein Negative (NEGATIVE); Urine Specific Gravity <=1.005 SP.GR. (1.005-1.010); Urine Urobilinogen Normal (NORMAL)
[2018-08-26 19:15] LABS: Urine Appearance Clear (CLEAR); Urine Color Yellow; Urine WBC 0-5 /hpf (0-5)
[2018-08-26 19:16] LABS: Urine Bacteria 1+; Urine Hyaline Cast TRACE /LPF; Urine RBC 0-5 /hpf (0-5)
[2018-08-26] MEDS ORDERED: AMITRIPTYLINE HCL 25 MG TABLET PO SCH (21:00)
[2018-08-27] MEDS: HYDROmorphone HCL 1 MG/ML DISP.SYRIN IV PRN ×3 (02:37→10:50)
[2018-08-27] MEDS: PROTEASE PO SCH ×2 (06:55→10:49)
[2018-08-27] MEDS: AMYLASE PO SCH ×2 (06:55→10:49)
[2018-08-27] MEDS: LIPASE PO SCH ×2 (06:55→10:49)
[2018-08-27] MEDS ORDERED: PANTOPRAZOLE SODIUM 40 MG TABLET.EC PO SCH (07:00)
[2018-08-27] MEDS ORDERED: VENLAFAXINE HCL 75 MG TABLET PO SCH (09:00)
[2018-08-27] MEDS ORDERED: NORMAL SALINE 1,000 ML IV PRN (10:13)
--- NOTE | 2018-08-27 10:43 | PN ---
Dictated Progress Note - Date and Time Seen: Date: 08/27/18 Time: 10:40 - Progress Note Narrative: feeling better today, tolerated bowel prep. nausea is unchanged from her chronic. Abd pain is decreased. Vital Signs - Last Taken Temp 37.1 C 08/27/18 10:00 Pulse 66 08/27/18 10:00 Resp 18 08/27/18 10:00 BP 113/65 08/27/18 10:00 Pulse Ox 100 08/27/18 10:00 Abnormal/Pending Laboratory Last 24 HRS 08/26/18 08/26/18 08/26/18 10:51 10:51 10:33 MCH 32.1 H Lymphocytes % 19.9 L Lymphocytes # 1.35 L Anion Gap 15.1 H Amylase 120 H Urine Blood 25 H Urine Bacteria 1+ H NAD abd soft, no rebound or guarding, TTP in RUQ resp non labored Imp: chronic abd pain thickened bowel on CT hx of RNYGB Plan: U/L endoscopy today her RNYGB was 10 years ago, she denies using any NSAIDS, which can cause marginal ulcerations
--- NOTE | 2018-08-27 10:47 | ANES ---
Anesthesia Pre Procedure Eval Vitals/Labs: Last Vital Signs Temp 37.1 C 08/27/18 10:00 Pulse 66 08/27/18 10:00 Resp 18 08/27/18 10:00 BP 113/65 08/27/18 10:00 Pulse Ox 100 08/27/18 10:00 HOME MEDICATIONS Dexlansoprazole [Dexilant] 60 mg PO DAILY 03/08/18 [Last Taken Unknown] Ondansetron [Zofran Odt] 4 mg PO QID PRN 03/08/18 [Last Taken Unknown] Venlafaxine HCl [Effexor] 75 mg PO DAILY 03/08/18 [Last Taken Unknown] Lipase/Protease/Amylase [Niraj Lozano 4,200 Unit Cap] 1 ea PO AC 08/25/18 [Last Taken Unknown] Amitriptyline HCl [Elavil] 25 mg PO HS 08/26/18 [Last Taken Unknown] HYDROcodone/ACETAMINOPHEN [[place] 5-325] 1 tab PO Q4H PRN 08/26/18 [Last Taken Unknown] Allergies/Adverse Reactions: Allergies Allergy/AdvReac Type Severity Reaction Status Date / Time fentanyl AdvReac Intermediate Chest Pain Verified 08/26/18 13:24 morphine AdvReac Intermediate Chest Pain Verified 08/26/18 13:24 NSAIDS (Non-Steroidal AdvReac Intermediate Vomiting Verified 08/26/18 13:24 Anti-Inflamma - Planned Procedure Planned Procedure: abd pain nausea and vomitting Medical History (Last Reviewed 08/27/18 @ 10:42 by Joseluis Lanier CRNA) Chronic pain Pancreatitis Peptic ulcer disease Surgical History (Last Reviewed 08/27/18 @ 10:42 by Joseluis Lanier CRNA) Hx of appendectomy Hx of cholecystectomy Hx of gastric bypass Hx of hysterectomy Family History (Last Reviewed 08/27/18 @ 10:43 by Joseluis Lanier CRNA) Brother Kidney transplant recipient CVA (cerebral vascular accident) Myocardial infarction Mother Myocardial infarction Pancreatic cancer - Family Anesthesia History Family History:: no untoward family reactions to anesthesia, no familial bleeding tendencies, no family history of clotting disorders - "woke up during EGD" in past, no family history of premature - Airway/Neck/Teeth Denture Type: Full upper Neck Exam: full range of motion Mallampatti Score: 1 Thyromental (T-M) distance: > 6 cm Mandibulo Hyoid distance: > 3 cm - Respiratory Respiratory History: asthma - unsure, carries inhaler for reactive airway. Respiratory Physical: lungs clear Smoking Status: Current every day smoker Discussed smoking cessation including day of surgery: Yes - last ciggarrette yesterday Sleep Apnea currently treated: No Sleep Apnea by current assessment: No - Cardiovascular Cardiac History: other - low blood pressure Tolerate Activity: Fair Heart Sounds: S1 & S2, Regular, Murmur - PMI tricuspid area - Anesthesia Assessment and Plan ASA Class: PS, II Anesthesia Type Plan: MAC
--- NOTE | 2018-08-27 11:31 | DS ---
(1) Abdominal pain in female patient Problem: Resolved (2) Moderate dehydration Problem: Resolved (3) Nausea & vomiting Problem: Resolved Description of Stay: 47-year-old female admitted for abdominal pain nausea and vomiting and moderate dehydration was evaluated at bedside and was found to be afebrile and in no acute distress. Patient reports improvement of her abdominal pain and resolution of her nausea and vomiting. She reports feeling better than when she came. Patient underwent an uneventful upper and lower endoscopy by the in-house surgeon which demonstrated ulceration of her stomach pouch created by Felipe y gastric bypass surgery several years ago. She was instructed to take Carafate and Pepcid which she says she has at home and was told to avoid any caffeinated drinks. Patient was also instructed to follow-up with her bariatric surgeon to evaluate her stomach pouch. We will discharge her home at this moment. Procedures Performed: see notes below List Procedures: EGD and colonoscopy performed by Dr. Silveira. Results and Findings: Lab Pending Results 08/26/18 10:33: Urine Color Yellow, Urine Appearance Clear, Urine pH 6.0, Ur Specific [place] <=1.005, Urine Protein Negative, Urine Glucose (UA) Negative, Urine Ketones Negative, Urine Blood 25 H, Urine Nitrate Negative, Urine Bilirubin Negative, Urine Urobilinogen Normal, Ur Leukocyte Esterase Negative, Urine RBC 0-5, Urine WBC 0-5, Ur Epithelial Cells 0-5, Urine Bacteria 1+ H, Hyaline Casts Trace, Urine Culture Comments No culture indicated 08/26/18 10:51: WBC 6.8, RBC 4.43, Hgb 14.2, Hct 41.9, MCV 94.6, MCH 32.1 H, MCHC 33.9, RDW 12.5, Plt Count 219, MPV 9.2, Immature Gran % (Auto) 0.30, Immature Gran # (Auto) 0.02, Neutrophils % 73.1, Lymphocytes % 19.9 L, Monocytes % 5.5, Eosinophils % 0.6, Basophils % 0.6, Nucleated RBC % 0.0, Neutrophils # 5.0, Lymphocytes # 1.35 L, Monocytes # 0.4, Eosinophils # 0.0, Absolute Basophils 0.0 08/26/18 10:51: Sodium 142, Plasma Sodium 142, Potassium 3.9, Chloride 105, Carbon Dioxide 25.8, Anion Gap 15.1 H, BUN 11, Creatinine 0.91, Est GFR (Non-Af Amer) 70, BUN/Creatinine Ratio 12.1, Random Glucose 94, Calcium 9.3, Calcium Adj for Albumin 9.3, Total Bilirubin 0.5, AST 20, ALT 20, Alkaline Phosphatase 82, Total Protein 7.0, Albumin 3.6, Amylase 120 H, Lipase 216 Discharge Location: Home Disposition: Home self-care Condition: Fair Face to Face Encounter completed per [facility] Guidelines: No Discharge Activity: Activity as tolerated Discharge Diet: General/regular food Referrals: Varun Peraza DO [Primary Care Provider] - Complete Home Medications List: Complete Home Medication List: Dexlansoprazole [Dexilant] 60 mg PO DAILY 03/08/18 Venlafaxine HCl [Effexor] 75 mg PO DAILY 03/08/18 Lipase/Protease/Amylase [Niraj Lozano 4,200 Unit Cap] 1 ea PO AC 08/25/18 Amitriptyline HCl [Elavil] 25 mg PO HS 08/26/18
--- NOTE | 2018-08-27 12:14 | ANES ---
Post Anesthesia Discharge - Transfer of Care Transfer of Care handoff given to nurse: Yes - Discharge from PACU Discharge from PACU when meets criteria: Yes - Discharge to ASU Discharge to ASU-no complications/pt stable: Yes
--- NOTE | 2018-08-27 12:33 | OR ---
Operative Report - Dictated Report Narrative: Date of Service:08/27/18 Procedure: EGD with biopsy and Colonoscopy Pre-procedure diagnosis: Abdominal pain history of Felipe-en-Y gastric bypass Post-procedure diagnosis: Abdominal ulcers with marginal ulceration, normal colon Surgeon: Dr. Rylie Silveira D.O. Anesthesia: MAC Indication for procedure: Kassidy is a pleasant 47-year-old female who has had chronic abdominal pain Description of procedure: After appropriate informed consent was obtained, patient was taken to the endoscopy suite placed in the left lateral decubitus position. Monitors were applied, appropriate sedation was achieved. A lubricated gastroscope was inserted and advanced into the gastric pouch, this appeared greatly enlarged. There was a second pouch with staple lines present with marginal ulceration. The scope was advanced down the limb and no mucosal changes were seen. There was also ulceration in the body of the stomach, with no visible vessel or bleeding. Random biopsy of the body of the stomach was done. Scope was slowly withdrawn to the GE junction, the Z line appeared normal. The excess air was suctioned and the scope was slowly removed. Under the same sedation, a digital rectal exam was done which was normal. A lubricated colonoscope was inserted and advanced to the cecum. I attemped to intubate the terminal ileum, but was unsuccessful. As the scope was withdrawn random right and left colon biopsies were done. The mucosa appeared normal. Cecal landmarks were identified, the scope was slowly and sequentially withdrawn. No abnormalities were seen. Complications: none Specimens to pathology: antral biopsy, right and left colon biopsies Estimated blood loss: minimal Prep quality: Good Disposition: I started Protonix and Carafate. I would recommend referral to a bariatric surgeon for further management. She will likely need an upper GI. She drinks a lot of Pepsi, and should work on decreasing her sodium intake and drinking more water.
[2018-08-27 16:08] VITALS: BP 111/67
[2018-08-27] MEDS ORDERED: SUCRALFATE 1 G TABLET PO SCH (17:00)
[2018-08-28] MEDS ORDERED: PANTOPRAZOLE SODIUM 40 MG TABLET.EC PO SCH (07:00)
== END 2018-08-27 16:15 | disposition home or self-care (01) ==
LOC: MS 10:21 → ER 10:21 → MS 12:36
PROVIDERS: ADMIT Family Medicine; ATTEND Family Medicine
DX: R10.9 Unspecified abdominal pain; K52.9 Noninfective gastroenteritis and colitis, unspecified; E86.0 Dehydration; R11.2 Nausea with vomiting, unspecified
CPT/HCPCS: 36415; 80053; 81001; 82150; 83690; 85025; 88305; J2405